=== PATIENT | female | born 1945 | race Caucasian/White ===

== ENCOUNTER 2019-03-02 14:32 | Inpatient (IN) ==
[2019-03-02] MEDS ORDERED: Naloxone 0.4 MG/ML INJ IVP PRN (21:50)
[2019-03-02] MEDS ORDERED: Acetaminophen 325 MG TABLET PO PRN (21:50)
[2019-03-03] MEDS: *HR* HYDROcodone/Acet 5/325 mg TABLET PO PRN ×3 (00:05→19:58)
[2019-03-03 05:18] LABS: Hematocrit 32.5 % (35.3-44.9); Hemoglobin 10.8 g/dL (11.5-15.4); Mean Corpuscular HGB Conc 33.2 g/dL (31.6-35.5); Mean Corpuscular Hemoglobin 28.4 pg (28.0-33.3); Mean Corpuscular Volume 85.5 fL (83.0-100.0); Mean Platelet Volume 10.8 fL (9.4-12.4); Platelet Count 227 K/mcL (140-400); Red Cell Distribution Width 14.6 % (11.5-14.5); White Blood Count 19.5 K/mcL (4.3-11.1)
[2019-03-03 05:35] LABS: Alanine Aminotransferase 39 Units/L (7-52); Albumin 2.3 g/dL (3.5-5.7); Albumin/Globulin Ratio 0.6 (1.1-2.2); Alkaline Phosphatase 107 Units/L (34-104); Aspartate Amino Transferase 37 Units/L (13-39); BUN/Creatinine Ratio 51 (6-26); Bilirubin,Total 0.5 mg/dL (0.3-1.0); Blood Urea Nitrogen 37 mg/dL (8-23); Calcium 8.3 mg/dL (8.6-10.3); Carbon Dioxide 23 mEq/L (23-29); Chloride 104 mEq/L (98-107); Globulin 3.9 g/dL (2.4-3.5); Glucose 175 mg/dL (70-105); Osmolality,Calculated 297 (280-300); Potassium 4.2 mEq/L (3.5-5.1); Sodium 137 mEq/L (136-145); Total Protein 6.2 g/dL (6.4-8.9); eGFR For African Americans > 60 (> 60); eGFR For Non-African Americans > 60 (> 60)
[2019-03-03] MEDS ORDERED: 0.9 % Sodium Chloride 250 ML ONE (05:35)
[2019-03-03] MEDS ORDERED: methylPREDNISolone 125 MG/2 ML VIAL IVP SCH (06:00)
[2019-03-03 06:32] LABS: Lymphocytes # 0.4 K/mcL (0.6-4.6); Monocytes # 1.6 K/mcL (0.0-1.3); Neutrophils # 17.6 K/mcL (1.6-8.9); Platelet Estimate Normal (Normal)
[2019-03-03 09:12] LABS: Estimated Average Glucose 123 mg/dl
[2019-03-03] MEDS ORDERED: Aminoglycoside Consult 1 EACH MC ONE (10:45)
[2019-03-03] MEDS: Torsemide 20 MG TABLET PO SCH (10:53)
[2019-03-03] MEDS: Acetaminophen 325 MG TABLET PO SCH ×2 (10:53→17:31)
[2019-03-03 13:33] LABS: Bilirubin,Urine Negative (Negative); Blood,Urine Small (Negative); Clarity,Urine Clear (Clear); Color,Urine Yellow (Yellow); Glucose,Urine (UA) Normal (Normal); Ketones,Urine Negative (Negative); Leukocyte Esterase,Urine Negative (Negative); Nitrite,Urine Negative (Negative); Protein,Urine Negative (Neg-Trace); Specific Gravity,Urine 1.017 (1.010-1.025); Urobilinogen,Urine Normal (Normal)
[2019-03-03 13:35] LABS: Bacteria,Urine None Seen per hpf (None-Few); Hyaline Casts,Urine Few per lpf (None-Few); RBC,Urine 0-3 per hpf (0-3); Squamous Epithelial Cell,Urine Moderate per lpf (None-Few); WBC,Urine 0-3 per hpf (0-3)
[2019-03-03] MEDS ORDERED: MethylPREDNISolone 40 MG/ML VIAL IVP SCH (16:00)
[2019-03-03] MEDS: ceFAZolin 2,000 MG in 0.9 % Sodium Chloride 100 ML IVPB SCH (17:42)
[2019-03-04] MEDS: ceFAZolin 2,000 MG in 0.9 % Sodium Chloride 100 ML IVPB SCH ×4 (00:14→23:42)
[2019-03-04] MEDS: Acetaminophen 325 MG TABLET PO SCH ×5 (00:15→23:42)
[2019-03-04 02:52] LABS: mecA Methicillin-Resist Gene Not Detected (Not Detect)
[2019-03-04 02:53] LABS: Acinetobacter baumannii by PCR Not Detected (Not Detect); Enterobacteriaceae by PCR Not Detected (Not Detect); Enterococcus by PCR Not Detected (Not Detect); Staphylococcus aureus by PCR DETECTED (Not Detect); Staphylococcus by PCR Not Detected (Not Detect); Streptococcus agalactiae(B)PCR Not Detected (Not Detect); Streptococcus by PCR Not Detected (Not Detect); Streptococcus pneumoniae PCR Not Detected (Not Detect); Streptococcus pyogenes (A) PCR Not Detected (Not Detect)
[2019-03-04 02:54] LABS: Candida albicans by PCR Not Detected (Not Detect); Candida glabrata by PCR Not Detected (Not Detect); Candida krusei by PCR Not Detected (Not Detect); Candida parapsilosis by PCR Not Detected (Not Detect); Candida tropicalis by PCR Not Detected (Not Detect); Enterobacter cloacae Cmplx PCR Not Detected (Not Detect); Escherichia coli by PCR Not Detected (Not Detect); Klebsiella oxytoca by PCR Not Detected (Not Detect); Klebsiella pneumoniae by PCR Not Detected (Not Detect); Proteus by PCR Not Detected (Not Detect); Pseudomonas aeruginosa by PCR Not Detected (Not Detect); Serratia marcescens by PCR Not Detected (Not Detect)
[2019-03-04 06:08] LABS: Hematocrit 32.1 % (35.3-44.9); Hemoglobin 10.6 g/dL (11.5-15.4); Mean Corpuscular Hemoglobin 27.7 pg (28.0-33.3); Mean Corpuscular Volume 83.8 fL (83.0-100.0); Mean Platelet Volume 10.8 fL (9.4-12.4); Platelet Count 238 K/mcL (140-400); Red Blood Count 3.83 M/mcL (3.82-4.97); Red Cell Distribution Width 14.7 % (11.5-14.5); White Blood Count 19.9 K/mcL (4.3-11.1)
[2019-03-04] MEDS: *HR* Enoxaparin 40 MG/0.4 ML SYRINGE SQ SCH (06:16)
[2019-03-04 06:30] LABS: Alanine Aminotransferase 43 Units/L (7-52); Albumin 2.2 g/dL (3.5-5.7); Albumin/Globulin Ratio 0.6 (1.1-2.2); Alkaline Phosphatase 95 Units/L (34-104); Aspartate Amino Transferase 39 Units/L (13-39); BUN/Creatinine Ratio 57 (6-26); Bilirubin,Total 0.5 mg/dL (0.3-1.0); Blood Urea Nitrogen 47 mg/dL (8-23); Calcium 7.9 mg/dL (8.6-10.3); Carbon Dioxide 24 mEq/L (23-29); Chloride 104 mEq/L (98-107); Globulin 3.7 g/dL (2.4-3.5); Glucose 135 mg/dL (70-105); Osmolality,Calculated 300 (280-300); Potassium 3.9 mEq/L (3.5-5.1); Sodium 138 mEq/L (136-145); Total Protein 5.9 g/dL (6.4-8.9); eGFR For African Americans > 60 (> 60); eGFR For Non-African Americans > 60 (> 60)
[2019-03-04 06:31] LABS: Magnesium 2.1 mg/dL (1.6-2.6); Phosphorous 3.5 mg/dL (2.7-4.5)
[2019-03-04] MEDS: Aspirin Enteric Coated 81 MG Tablet PO SCH (08:33)
[2019-03-04] MEDS: predniSONE 10 MG TABLET PO SCH (08:33)
[2019-03-04] MEDS: Loratadine 10 MG TABLET PO SCH (08:33)
[2019-03-04] MEDS: Torsemide 20 MG TABLET PO SCH (08:33)
[2019-03-04] MEDS ORDERED: Potassium Citrate 10 MEQ TABLET.ER PO SCH (09:00)
[2019-03-04] MEDS: *HR* HYDROcodone/Acet 5/325 mg TABLET PO PRN ×2 (10:54→17:41)
[2019-03-04] MEDS ORDERED: Isovue-370 500 ML BOTTLE IVP ONE (10:59)
[2019-03-04 19:27] LABS: Bilirubin,Urine Negative (Negative); Blood,Urine Negative (Negative); Clarity,Urine Clear (Clear); Color,Urine Yellow (Yellow); Glucose,Urine (UA) Normal (Normal); Ketones,Urine Negative (Negative); Leukocyte Esterase,Urine Negative (Negative); Nitrite,Urine Negative (Negative); Protein,Urine Negative (Neg-Trace); Specific Gravity,Urine 1.027 (1.010-1.025); Urobilinogen,Urine Normal (Normal)
[2019-03-04] MEDS: Nystatin POWDER 30 GM BOTTLE TP SCH (22:14)
[2019-03-04] MEDS ORDERED: *HR* OxyCODONE Immed Rel 5 MG TABLET PO ONE (22:51)
[2019-03-05] MEDS: *HR* HYDROcodone/Acet 5/325 mg TABLET PO PRN ×2 (03:37→09:43)
[2019-03-05 04:23] LABS: Hematocrit 32.7 % (35.3-44.9); Hemoglobin 10.9 g/dL (11.5-15.4); Mean Corpuscular HGB Conc 33.3 g/dL (31.6-35.5); Mean Corpuscular Hemoglobin 28.2 pg (28.0-33.3); Mean Corpuscular Volume 84.5 fL (83.0-100.0); Mean Platelet Volume 10.5 fL (9.4-12.4); Platelet Count 251 K/mcL (140-400); Red Blood Count 3.87 M/mcL (3.82-4.97); Red Cell Distribution Width 14.6 % (11.5-14.5); White Blood Count 21.3 K/mcL (4.3-11.1)
[2019-03-05 04:43] LABS: BUN/Creatinine Ratio 48 (6-26); Blood Urea Nitrogen 37 mg/dL (8-23); Calcium 7.7 mg/dL (8.6-10.3); Carbon Dioxide 25 mEq/L (23-29); Chloride 102 mEq/L (98-107); Glucose 129 mg/dL (70-105); Osmolality,Calculated 290 (280-300); Potassium 3.9 mEq/L (3.5-5.1); Sodium 135 mEq/L (136-145); eGFR For African Americans > 60 (> 60); eGFR For Non-African Americans > 60 (> 60)
[2019-03-05 05:41] LABS: Acinetobacter baumannii by PCR Not Detected (Not Detect); Candida albicans by PCR Not Detected (Not Detect); Candida glabrata by PCR Not Detected (Not Detect); Candida krusei by PCR Not Detected (Not Detect); Candida parapsilosis by PCR Not Detected (Not Detect); Candida tropicalis by PCR Not Detected (Not Detect); Enterobacter cloacae Cmplx PCR Not Detected (Not Detect); Enterobacteriaceae by PCR Not Detected (Not Detect); Enterococcus by PCR Not Detected (Not Detect); Escherichia coli by PCR Not Detected (Not Detect); Klebsiella oxytoca by PCR Not Detected (Not Detect); Klebsiella pneumoniae by PCR Not Detected (Not Detect); Proteus by PCR Not Detected (Not Detect); Pseudomonas aeruginosa by PCR Not Detected (Not Detect); Serratia marcescens by PCR Not Detected (Not Detect); Staphylococcus aureus by PCR DETECTED (Not Detect); Staphylococcus by PCR Not Detected (Not Detect); Streptococcus agalactiae(B)PCR Not Detected (Not Detect); Streptococcus by PCR Not Detected (Not Detect); Streptococcus pneumoniae PCR Not Detected (Not Detect); Streptococcus pyogenes (A) PCR Not Detected (Not Detect); mecA Methicillin-Resist Gene Not Detected (Not Detect)
[2019-03-05] MEDS: *HR* Enoxaparin 40 MG/0.4 ML SYRINGE SQ SCH (05:50)
[2019-03-05] MEDS: Acetaminophen 325 MG TABLET PO SCH ×3 (05:50→17:13)
[2019-03-05] MEDS: predniSONE 10 MG TABLET PO SCH (09:46)
[2019-03-05] MEDS: ceFAZolin 2,000 MG in 0.9 % Sodium Chloride 100 ML IVPB SCH ×2 (09:47→17:12)
[2019-03-05] MEDS ORDERED: Lidocaine Viscous Oral Soln 15 ML SOLUTION MM PRN (09:51)
[2019-03-05] MEDS ORDERED: 0.9 % Sodium Chloride 500 ML IVC ONE (09:51)
[2019-03-05] MEDS: *HR* FentaNYL (PF) 100 MCG/2 ML VIAL IVP PRN ×2 (10:30→10:35)
[2019-03-05] MEDS: *HR* Midazolam HCl 5 MG/5 ML VIAL IVP PRN ×2 (10:30→10:35)
[2019-03-05] MEDS ORDERED: *HR* HYDROcodone/Acet 5/325 mg TABLET PO PRN (10:55)
[2019-03-05] MEDS: Torsemide 20 MG TABLET PO SCH (12:47)
[2019-03-05] MEDS: Aspirin Enteric Coated 81 MG Tablet PO SCH (12:47)
[2019-03-05] MEDS: Loratadine 10 MG TABLET PO SCH (12:47)
[2019-03-05] MEDS: Nystatin POWDER 30 GM BOTTLE TP SCH ×2 (12:50→20:37)
[2019-03-05] MEDS: Potassium Chloride Elixir 20 MEQ/15 ML UDC PO SCH (14:39)
[2019-03-05] MEDS: Mag Hydrox/Al Hydrox/Simeth 30 ML UDC PO PRN (19:17)
[2019-03-06] MEDS: ceFAZolin 2,000 MG in 0.9 % Sodium Chloride 100 ML IVPB SCH ×3 (00:39→15:26)
[2019-03-06] MEDS: Acetaminophen 325 MG TABLET PO SCH ×4 (00:40→17:22)
[2019-03-06] MEDS: *HR* OxyCODONE Immed Rel 5 MG TABLET PO PRN ×3 (01:14→21:27)
[2019-03-06] MEDS: Mag Hydrox/Al Hydrox/Simeth 30 ML UDC PO PRN ×3 (01:37→21:26)
[2019-03-06 04:02] LABS: White Blood Count 22.4 K/mcL (4.3-11.1)
[2019-03-06 04:03] LABS: Hematocrit 29.9 % (35.3-44.9); Hemoglobin 9.9 g/dL (11.5-15.4); Mean Corpuscular HGB Conc 33.1 g/dL (31.6-35.5); Mean Corpuscular Hemoglobin 27.8 pg (28.0-33.3); Mean Platelet Volume 10.7 fL (9.4-12.4); Platelet Count 270 K/mcL (140-400); Red Blood Count 3.56 M/mcL (3.82-4.97); Red Cell Distribution Width 14.6 % (11.5-14.5)
[2019-03-06 04:24] LABS: BUN/Creatinine Ratio 39 (6-26); Blood Urea Nitrogen 24 mg/dL (8-23); Calcium 7.6 mg/dL (8.6-10.3); Carbon Dioxide 27 mEq/L (23-29); Chloride 99 mEq/L (98-107); Glucose 149 mg/dL (70-105); Osmolality,Calculated 283 (280-300); Phosphorous 2.6 mg/dL (2.7-4.5); Potassium 3.9 mEq/L (3.5-5.1); Sodium 133 mEq/L (136-145); eGFR For African Americans > 60 (> 60); eGFR For Non-African Americans > 60 (> 60)
[2019-03-06 04:47] LABS: Lymphocytes # 2.2 K/mcL (0.6-4.6); Monocytes # 0.9 K/mcL (0.0-1.3); Neutrophils # 19.3 K/mcL (1.6-8.9)
[2019-03-06 04:51] LABS: Platelet Estimate Normal (Normal)
[2019-03-06] MEDS: *HR* Enoxaparin 40 MG/0.4 ML SYRINGE SQ SCH (06:16)
[2019-03-06] MEDS: Loratadine 10 MG TABLET PO SCH (08:15)
[2019-03-06] MEDS: predniSONE 10 MG TABLET PO SCH (08:15)
[2019-03-06] MEDS: Aspirin Enteric Coated 81 MG Tablet PO SCH (08:15)
[2019-03-06] MEDS: Potassium Chloride Elixir 20 MEQ/15 ML UDC PO SCH (08:15)
[2019-03-06] MEDS: Nystatin POWDER 30 GM BOTTLE TP SCH ×2 (08:20→21:27)
[2019-03-06] MEDS: Torsemide 20 MG TABLET PO SCH (09:59)
[2019-03-06] MEDS: Simethicone 80 MG TAB.CHEW PO PRN (11:04)
[2019-03-06] MEDS ORDERED: *HR* LORazepam 2 MG/ML VIAL IVP PRN (11:22)
[2019-03-06] MEDS ORDERED: Isovue-370 500 ML BOTTLE IVP ONE (16:29)
[2019-03-07] MEDS: ceFAZolin 2,000 MG in 0.9 % Sodium Chloride 100 ML IVPB SCH ×3 (01:02→16:16)
[2019-03-07] MEDS: Acetaminophen 325 MG TABLET PO SCH ×4 (01:02→18:30)
[2019-03-07] MEDS: Simethicone 80 MG TAB.CHEW PO PRN (01:06)
[2019-03-07 04:12] LABS: Hematocrit 30.3 % (35.3-44.9); Hemoglobin 10.1 g/dL (11.5-15.4); Mean Corpuscular HGB Conc 33.3 g/dL (31.6-35.5); Mean Corpuscular Hemoglobin 27.6 pg (28.0-33.3); Mean Corpuscular Volume 82.8 fL (83.0-100.0); Mean Platelet Volume 10.9 fL (9.4-12.4); Platelet Count 331 K/mcL (140-400); Red Blood Count 3.66 M/mcL (3.82-4.97); Red Cell Distribution Width 14.8 % (11.5-14.5); White Blood Count 19.9 K/mcL (4.3-11.1)
[2019-03-07 04:33] LABS: BUN/Creatinine Ratio 36 (6-26); Blood Urea Nitrogen 21 mg/dL (8-23); Calcium 7.9 mg/dL (8.6-10.3); Carbon Dioxide 26 mEq/L (23-29); Chloride 98 mEq/L (98-107); Glucose 129 mg/dL (70-105); Osmolality,Calculated 277 (280-300); Phosphorous 2.7 mg/dL (2.7-4.5); Potassium 4.1 mEq/L (3.5-5.1); Sodium 131 mEq/L (136-145); eGFR For African Americans > 60 (> 60); eGFR For Non-African Americans > 60 (> 60)
[2019-03-07 05:09] LABS: Lymphocytes # 2.8 K/mcL (0.6-4.6); Monocytes # 0.8 K/mcL (0.0-1.3); Neutrophils # 16.3 K/mcL (1.6-8.9)
[2019-03-07 05:10] LABS: Platelet Estimate Normal (Normal); Toxic Granulation Present (Not Present)
[2019-03-07] MEDS: *HR* Enoxaparin 40 MG/0.4 ML SYRINGE SQ SCH (05:57)
[2019-03-07] MEDS: *HR* OxyCODONE Immed Rel 5 MG TABLET PO PRN ×2 (06:52→20:09)
[2019-03-07] MEDS: Potassium Chloride Elixir 20 MEQ/15 ML UDC PO SCH (07:34)
[2019-03-07] MEDS: Loratadine 10 MG TABLET PO SCH (07:34)
[2019-03-07] MEDS: Nystatin POWDER 30 GM BOTTLE TP SCH ×2 (07:35→20:11)
[2019-03-07] MEDS: Torsemide 20 MG TABLET PO SCH (07:35)
[2019-03-07] MEDS: predniSONE 10 MG TABLET PO SCH (07:35)
[2019-03-07] MEDS: Aspirin Enteric Coated 81 MG Tablet PO SCH (07:36)
[2019-03-07] MEDS ORDERED: *HR* LORazepam 2 MG/ML VIAL IVP PRN (13:31)
[2019-03-07] MEDS: Furosemide 20 MG/2 ML VIAL IVP SCH (16:16)
[2019-03-07] MEDS: *HR* LORazepam 0.5 MG TABLET PO PRN (20:09)
[2019-03-07] MEDS ORDERED: Furosemide 20 MG/2 ML VIAL IVP SCH (21:00)
[2019-03-08] MEDS: Acetaminophen 325 MG TABLET PO SCH ×4 (00:03→17:30)
[2019-03-08] MEDS: ceFAZolin 2,000 MG in 0.9 % Sodium Chloride 100 ML IVPB SCH ×3 (00:03→17:30)
[2019-03-08] MEDS: *HR* Enoxaparin 40 MG/0.4 ML SYRINGE SQ SCH (05:59)
[2019-03-08] MEDS: Simethicone 80 MG TAB.CHEW PO PRN ×2 (06:04→21:18)
[2019-03-08 07:04] LABS: Hematocrit 29.9 % (35.3-44.9); Hemoglobin 9.8 g/dL (11.5-15.4); Mean Corpuscular HGB Conc 32.8 g/dL (31.6-35.5); Mean Corpuscular Hemoglobin 27.8 pg (28.0-33.3); Mean Corpuscular Volume 84.7 fL (83.0-100.0); Mean Platelet Volume 10.3 fL (9.4-12.4); Platelet Count 418 K/mcL (140-400); Red Blood Count 3.53 M/mcL (3.82-4.97); White Blood Count 15.3 K/mcL (4.3-11.1)
[2019-03-08 07:22] LABS: BUN/Creatinine Ratio 33 (6-26); Blood Urea Nitrogen 20 mg/dL (8-23); Calcium 8.1 mg/dL (8.6-10.3); Carbon Dioxide 28 mEq/L (23-29); Chloride 95 mEq/L (98-107); Glucose 122 mg/dL (70-105); Osmolality,Calculated 274 (280-300); Phosphorous 3.8 mg/dL (2.7-4.5); Potassium 4.1 mEq/L (3.5-5.1); Sodium 130 mEq/L (136-145); eGFR For African Americans > 60 (> 60); eGFR For Non-African Americans > 60 (> 60)
[2019-03-08 07:27] LABS: Eosinophils # 0.3 K/mcL (0.0-0.6); Lymphocytes # 2.5 K/mcL (0.6-4.6); Monocytes # 1.8 K/mcL (0.0-1.3); Neutrophils # 10.7 K/mcL (1.6-8.9); Platelet Estimate Normal (Normal)
[2019-03-08] MEDS: Aspirin Enteric Coated 81 MG Tablet PO SCH (09:40)
[2019-03-08] MEDS: Potassium Chloride Elixir 20 MEQ/15 ML UDC PO SCH (09:40)
[2019-03-08] MEDS: predniSONE 10 MG TABLET PO SCH (09:41)
[2019-03-08] MEDS: Loratadine 10 MG TABLET PO SCH (09:41)
[2019-03-08] MEDS: Furosemide 20 MG/2 ML VIAL IVP SCH ×2 (09:41→18:07)
[2019-03-08] MEDS: *HR* OxyCODONE Immed Rel 5 MG TABLET PO PRN ×3 (09:41→21:18)
[2019-03-08] MEDS: Nystatin POWDER 30 GM BOTTLE TP SCH ×2 (09:46→21:26)
[2019-03-08] MEDS ORDERED: Furosemide 20 MG/2 ML VIAL IVP ONE (13:11)
[2019-03-08] MEDS ORDERED: Furosemide 40 MG/4 ML VIAL IVP ONE (21:00)
[2019-03-08] MEDS: Carisoprodol 350 MG TABLET PO PRN (21:18)
[2019-03-08] MEDS: *HR* LORazepam 0.5 MG TABLET PO PRN (21:18)
[2019-03-08] MEDS: Mag Hydrox/Al Hydrox/Simeth 30 ML UDC PO PRN (21:19)
[2019-03-09] MEDS: ceFAZolin 2,000 MG in 0.9 % Sodium Chloride 100 ML IVPB SCH ×4 (00:12→23:28)
[2019-03-09] MEDS: Acetaminophen 325 MG TABLET PO SCH ×5 (00:12→23:31)
[2019-03-09] MEDS: Simethicone 80 MG TAB.CHEW PO PRN ×2 (06:25→21:46)
[2019-03-09] MEDS: *HR* OxyCODONE Immed Rel 5 MG TABLET PO PRN ×3 (06:26→21:46)
[2019-03-09] MEDS: Carisoprodol 350 MG TABLET PO PRN ×2 (06:26→21:46)
[2019-03-09] MEDS: *HR* Enoxaparin 40 MG/0.4 ML SYRINGE SQ SCH (06:36)
[2019-03-09 06:51] LABS: Hematocrit 30.5 % (35.3-44.9); Mean Corpuscular HGB Conc 32.8 g/dL (31.6-35.5); Mean Corpuscular Hemoglobin 28.3 pg (28.0-33.3); Mean Corpuscular Volume 86.4 fL (83.0-100.0); Mean Platelet Volume 10.4 fL (9.4-12.4); Platelet Count 458 K/mcL (140-400); Red Blood Count 3.53 M/mcL (3.82-4.97); White Blood Count 11.8 K/mcL (4.3-11.1)
[2019-03-09 07:13] LABS: BUN/Creatinine Ratio 29 (6-26); Blood Urea Nitrogen 19 mg/dL (8-23); Calcium 8.5 mg/dL (8.6-10.3); Carbon Dioxide 30 mEq/L (23-29); Chloride 96 mEq/L (98-107); Glucose 119 mg/dL (70-105); Magnesium 2.1 mg/dL (1.6-2.6); Osmolality,Calculated 271 (280-300); Phosphorous 4.1 mg/dL (2.7-4.5); Potassium 3.7 mEq/L (3.5-5.1); Sodium 129 mEq/L (136-145); eGFR For African Americans > 60 (> 60); eGFR For Non-African Americans > 60 (> 60)
[2019-03-09 07:21] LABS: Eosinophils # 0.7 K/mcL (0.0-0.6); Lymphocytes # 2.6 K/mcL (0.6-4.6); Monocytes # 0.9 K/mcL (0.0-1.3); Neutrophils # 7.6 K/mcL (1.6-8.9)
[2019-03-09 07:23] LABS: Anisocytosis 1+ (Not Present); Smudge Cells Present (Not Present)
[2019-03-09] MEDS: Potassium Chloride Elixir 20 MEQ/15 ML UDC PO SCH (09:26)
[2019-03-09] MEDS: Aspirin Enteric Coated 81 MG Tablet PO SCH (09:26)
[2019-03-09] MEDS: predniSONE 10 MG TABLET PO SCH (09:26)
[2019-03-09] MEDS: Loratadine 10 MG TABLET PO SCH (09:26)
[2019-03-09] MEDS: Furosemide 20 MG/2 ML VIAL IVP SCH ×2 (09:27→16:33)
[2019-03-09] MEDS: Nystatin POWDER 30 GM BOTTLE TP SCH ×2 (09:28→21:45)
[2019-03-09] MEDS: Mag Hydrox/Al Hydrox/Simeth 30 ML UDC PO PRN (21:45)
[2019-03-09] MEDS: *HR* LORazepam 0.5 MG TABLET PO PRN (21:46)
[2019-03-10 05:31] LABS: BUN/Creatinine Ratio 30 (6-26); Blood Urea Nitrogen 20 mg/dL (8-23); Calcium 8.8 mg/dL (8.6-10.3); Carbon Dioxide 32 mEq/L (23-29); Chloride 95 mEq/L (98-107); Glucose 110 mg/dL (70-105); Magnesium 2.2 mg/dL (1.6-2.6); Osmolality,Calculated 277 (280-300); Phosphorous 3.9 mg/dL (2.7-4.5); Potassium 3.6 mEq/L (3.5-5.1); Sodium 132 mEq/L (136-145); eGFR For African Americans > 60 (> 60); eGFR For Non-African Americans > 60 (> 60)
[2019-03-10] MEDS: *HR* Enoxaparin 40 MG/0.4 ML SYRINGE SQ SCH (06:00)
[2019-03-10] MEDS: Acetaminophen 325 MG TABLET PO SCH ×3 (06:01→15:17)
[2019-03-10 06:35] LABS: Hematocrit 30.5 % (35.3-44.9); Hemoglobin 9.7 g/dL (11.5-15.4); Mean Corpuscular HGB Conc 31.8 g/dL (31.6-35.5); Mean Corpuscular Hemoglobin 27.4 pg (28.0-33.3); Mean Corpuscular Volume 86.2 fL (83.0-100.0); Mean Platelet Volume 10.1 fL (9.4-12.4); Platelet Count 504 K/mcL (140-400); Red Blood Count 3.54 M/mcL (3.82-4.97); White Blood Count 11.5 K/mcL (4.3-11.1)
[2019-03-10 08:28] LABS: Lymphocytes # 2.3 K/mcL (0.6-4.6); Monocytes # 1.4 K/mcL (0.0-1.3); Neutrophils # 7.8 K/mcL (1.6-8.9)
[2019-03-10 08:29] LABS: Anisocytosis 1+ (Not Present)
[2019-03-10] MEDS: Furosemide 20 MG/2 ML VIAL IVP SCH ×2 (08:34→15:17)
[2019-03-10] MEDS: ceFAZolin 2,000 MG in 0.9 % Sodium Chloride 100 ML IVPB SCH ×2 (08:34→15:37)
[2019-03-10] MEDS: predniSONE 10 MG TABLET PO SCH (08:35)
[2019-03-10] MEDS: Loratadine 10 MG TABLET PO SCH (08:35)
[2019-03-10] MEDS: Aspirin Enteric Coated 81 MG Tablet PO SCH (08:35)
[2019-03-10] MEDS: Potassium Chloride Elixir 20 MEQ/15 ML UDC PO SCH (08:43)
[2019-03-10] MEDS: *HR* OxyCODONE Immed Rel 5 MG TABLET PO PRN ×5 (08:49→21:27)
[2019-03-10] MEDS: Simethicone 80 MG TAB.CHEW PO PRN ×2 (08:49→21:26)
[2019-03-10] MEDS: Nystatin POWDER 30 GM BOTTLE TP SCH ×2 (08:52→21:27)
[2019-03-10] MEDS ORDERED: Lidocaine -MPF 1% 5 ML AMPUL INFILT ONE (12:23)
[2019-03-10] MEDS: Carisoprodol 350 MG TABLET PO PRN (21:26)
[2019-03-10] MEDS: Mag Hydrox/Al Hydrox/Simeth 30 ML UDC PO PRN (21:27)
[2019-03-10] MEDS: *HR* LORazepam 0.5 MG TABLET PO PRN (21:27)
[2019-03-11] MEDS: ceFAZolin 2,000 MG in 0.9 % Sodium Chloride 100 ML IVPB SCH ×3 (00:38→15:40)
[2019-03-11] MEDS: Acetaminophen 325 MG TABLET PO SCH ×4 (00:43→18:55)
[2019-03-11 05:19] LABS: Basophils % 0.3 %; Eosinophils # 0.1 K/mcL (0.0-0.6); Eosinophils % 0.9 %; Hematocrit 28.5 % (35.3-44.9); Hemoglobin 9.2 g/dL (11.5-15.4); Immature Granulocytes % 2.2 % (0-4); Lymphocytes # 2.4 K/mcL (0.6-4.6); Lymphocytes % 23.9 %; Mean Corpuscular HGB Conc 32.3 g/dL (31.6-35.5); Mean Corpuscular Hemoglobin 28.1 pg (28.0-33.3); Mean Corpuscular Volume 87.2 fL (83.0-100.0); Mean Platelet Volume 9.4 fL (9.4-12.4); Monocytes # 1.1 K/mcL (0.0-1.3); Monocytes % 10.7 %; Neutrophils # 6.2 K/mcL (1.6-8.9); Platelet Count 486 K/mcL (140-400); Red Blood Count 3.27 M/mcL (3.82-4.97); Red Cell Distribution Width 15.3 % (11.5-14.5)
[2019-03-11 05:36] LABS: BUN/Creatinine Ratio 30 (6-26); Blood Urea Nitrogen 19 mg/dL (8-23); Calcium 8.6 mg/dL (8.6-10.3); Carbon Dioxide 31 mEq/L (23-29); Chloride 94 mEq/L (98-107); Glucose 104 mg/dL (70-105); Magnesium 2.2 mg/dL (1.6-2.6); Osmolality,Calculated 279 (280-300); Phosphorous 3.7 mg/dL (2.7-4.5); Potassium 3.7 mEq/L (3.5-5.1); Sodium 133 mEq/L (136-145); eGFR For African Americans > 60 (> 60); eGFR For Non-African Americans > 60 (> 60)
[2019-03-11] MEDS: *HR* Enoxaparin 40 MG/0.4 ML SYRINGE SQ SCH (06:21)
[2019-03-11] MEDS: Potassium Chloride Elixir 20 MEQ/15 ML UDC PO SCH (09:35)
[2019-03-11] MEDS: Aspirin Enteric Coated 81 MG Tablet PO SCH (09:35)
[2019-03-11] MEDS: predniSONE 10 MG TABLET PO SCH (09:35)
[2019-03-11] MEDS: Loratadine 10 MG TABLET PO SCH (09:35)
[2019-03-11] MEDS: Furosemide 20 MG/2 ML VIAL IVP SCH ×2 (09:36→15:41)
[2019-03-11] MEDS: *HR* OxyCODONE Immed Rel 5 MG TABLET PO PRN ×3 (09:41→21:59)
[2019-03-11] MEDS: Nystatin POWDER 30 GM BOTTLE TP SCH ×2 (09:50→21:21)
[2019-03-11] MEDS: Carisoprodol 350 MG TABLET PO PRN ×2 (11:59→21:11)
[2019-03-11] MEDS: Simethicone 80 MG TAB.CHEW PO PRN ×2 (11:59→21:10)
[2019-03-11] MEDS: Mag Hydrox/Al Hydrox/Simeth 30 ML UDC PO PRN ×2 (18:52→21:12)
[2019-03-11] MEDS: *HR* LORazepam 0.5 MG TABLET PO PRN (21:10)
[2019-03-12] MEDS: ceFAZolin 2,000 MG in 0.9 % Sodium Chloride 100 ML IVPB SCH ×2 (00:48→09:52)
[2019-03-12] MEDS: Acetaminophen 325 MG TABLET PO SCH ×2 (00:48→06:10)
[2019-03-12] MEDS: *HR* Enoxaparin 40 MG/0.4 ML SYRINGE SQ SCH (06:10)
[2019-03-12 07:54] VITALS: BP 130/80
[2019-03-12] MEDS: predniSONE 10 MG TABLET PO SCH (09:51)
[2019-03-12] MEDS: Aspirin Enteric Coated 81 MG Tablet PO SCH (09:51)
[2019-03-12] MEDS: Loratadine 10 MG TABLET PO SCH (09:52)
[2019-03-12] MEDS: Furosemide 20 MG/2 ML VIAL IVP SCH (09:52)
[2019-03-12] MEDS: Potassium Chloride Elixir 20 MEQ/15 ML UDC PO SCH (09:53)
[2019-03-12] MEDS: *HR* OxyCODONE Immed Rel 5 MG TABLET PO PRN (10:02)
[2019-03-12] MEDS: Simethicone 80 MG TAB.CHEW PO PRN (10:10)
[2019-03-12] MEDS: Mag Hydrox/Al Hydrox/Simeth 30 ML UDC PO PRN (10:11)
[2019-03-12] MEDS: Nystatin POWDER 30 GM BOTTLE TP SCH (12:11)
== END 2019-03-12 12:54 | disposition home or self-care (01) | DRG 871 ==
LOC: SUATTDRO 18:40 → 2ANU 18:40
PROVIDERS: ADMIT Internal Medicine; ATTEND Internal Medicine

== ENCOUNTER 2019-08-12 21:07 | Observation (INO) ==
[2019-08-12] MEDS ORDERED: Ondansetron 4 MG/2 ML VIAL IVP PRN (22:56)
[2019-08-12] MEDS ORDERED: Naloxone 0.4 MG/ML INJ IVP PRN (22:56)
[2019-08-12] MEDS ORDERED: Vancomycin 0 MG in 0.9 % Sodium Chloride 250 ML IVPB SCH (23:45)
[2019-08-13] MEDS: ceFAZolin 1,000 MG in Water for inj. (sterile) 10 ML IVP SCH ×2 (00:13→08:39)
[2019-08-13] MEDS: *HR* Heparin 5,000 UNIT/ML VIAL SQ SCH ×3 (00:14→16:56)
[2019-08-13] MEDS: 0.9 % Sodium Chloride 1,000 ML IVC SCH ×2 (00:14→20:01)
[2019-08-13 02:02] LABS: Basophils % 0.9 %; Eosinophils # 0.1 K/mcL (0.0-0.6); Eosinophils % 2.9 %; Hematocrit 36.4 % (35.3-44.9); Immature Granulocytes % 0.2 % (0-4); Lymphocytes % 44.6 %; Mean Corpuscular Hemoglobin 29.1 pg (28.0-33.3); Mean Corpuscular Volume 88.1 fL (83.0-100.0); Mean Platelet Volume 11.3 fL (9.4-12.4); Monocytes # 0.5 K/mcL (0.0-1.3); Monocytes % 11.5 %; Neutrophils # 1.8 K/mcL (1.6-8.9); Platelet Count 201 K/mcL (140-400); Red Blood Count 4.13 M/mcL (3.82-4.97); Red Cell Distribution Width 14.2 % (11.5-14.5); Segmented Neutrophils % 39.9 %; White Blood Count 4.5 K/mcL (4.3-11.1)
[2019-08-13 02:21] LABS: BUN/Creatinine Ratio 17 (6-26); Blood Urea Nitrogen 13 mg/dL (8-23); Calcium 8.8 mg/dL (8.6-10.3); Carbon Dioxide 24 mEq/L (23-29); Chloride 106 mEq/L (98-107); Glucose 128 mg/dL (70-105); Osmolality,Calculated 288 (280-300); Phosphorous 3.1 mg/dL (2.7-4.5); Potassium 3.5 mEq/L (3.5-5.1); Sodium 138 mEq/L (136-145); eGFR For African Americans > 60 (> 60); eGFR For Non-African Americans > 60 (> 60)
[2019-08-13] MEDS: *HR* HYDROmorphone (PF) 1 MG/ML SYRINGE IVP PRN ×2 (04:28→08:38)
[2019-08-13] MEDS ORDERED: Acetaminophen IV 1,000 MG/100 ML INFUS..BTL IVPB ONE (09:29)
[2019-08-13] MEDS: predniSONE 5 MG TABLET PO SCH (17:05)
[2019-08-13] MEDS: methocarbamoL 500 MG TABLET PO PRN (20:01)
[2019-08-14] MEDS: *HR* Heparin 5,000 UNIT/ML VIAL SQ SCH ×2 (05:21→17:32)
[2019-08-14] MEDS: Loratadine 10 MG TABLET PO SCH (05:22)
[2019-08-14 05:49] LABS: Eosinophils # 0.1 K/mcL (0.0-0.6); Eosinophils % 2.2 %; Hematocrit 34.2 % (35.3-44.9); Hemoglobin 10.7 g/dL (11.5-15.4); Immature Granulocytes % 0.2 % (0-4); Lymphocytes # 1.5 K/mcL (0.6-4.6); Lymphocytes % 36.4 %; Mean Corpuscular HGB Conc 31.3 g/dL (31.6-35.5); Mean Corpuscular Hemoglobin 27.8 pg (28.0-33.3); Mean Corpuscular Volume 88.8 fL (83.0-100.0); Mean Platelet Volume 11.5 fL (9.4-12.4); Monocytes # 0.4 K/mcL (0.0-1.3); Neutrophils # 2.1 K/mcL (1.6-8.9); Platelet Count 139 K/mcL (140-400); Red Blood Count 3.85 M/mcL (3.82-4.97); Red Cell Distribution Width 14.3 % (11.5-14.5); Segmented Neutrophils % 51.2 %; White Blood Count 4.1 K/mcL (4.3-11.1)
[2019-08-14 06:11] LABS: BUN/Creatinine Ratio 18 (6-26); Blood Urea Nitrogen 11 mg/dL (8-23); Calcium 8.8 mg/dL (8.6-10.3); Carbon Dioxide 24 mEq/L (23-29); Chloride 107 mEq/L (98-107); Glucose 103 mg/dL (70-105); Osmolality,Calculated 284 (280-300); Sodium 137 mEq/L (136-145); eGFR For African Americans > 60 (> 60); eGFR For Non-African Americans > 60 (> 60)
[2019-08-14] MEDS: predniSONE 5 MG TABLET PO SCH (07:21)
[2019-08-14] MEDS: Doxycycline 100 MG in 0.9 % Sodium Chloride Mini Bag 100 ML IVPB SCH (17:32)
[2019-08-14] MEDS: methocarbamoL 500 MG TABLET PO PRN (20:48)
[2019-08-14] MEDS ORDERED: Aminoglycoside Consult 1 EACH MC ONE (21:27)
[2019-08-15] MEDS: *HR* Heparin 5,000 UNIT/ML VIAL SQ SCH (06:04)
[2019-08-15] MEDS: Doxycycline 100 MG in 0.9 % Sodium Chloride Mini Bag 100 ML IVPB SCH (06:05)
[2019-08-15] MEDS: predniSONE 5 MG TABLET PO SCH (07:55)
[2019-08-15] MEDS: Loratadine 10 MG TABLET PO SCH (07:55)
[2019-08-15 08:37] LABS: Eosinophils # 0.2 K/mcL (0.0-0.6); Eosinophils % 4.9 %; Hemoglobin 11.9 g/dL (11.5-15.4); Immature Granulocytes % 0.2 % (0-4); Lymphocytes # 2.4 K/mcL (0.6-4.6); Lymphocytes % 58.4 %; Mean Corpuscular HGB Conc 32.2 g/dL (31.6-35.5); Mean Corpuscular Hemoglobin 28.7 pg (28.0-33.3); Mean Corpuscular Volume 89.4 fL (83.0-100.0); Mean Platelet Volume 11.8 fL (9.4-12.4); Monocytes # 0.4 K/mcL (0.0-1.3); Monocytes % 8.5 %; Neutrophils # 1.1 K/mcL (1.6-8.9); Platelet Count 177 K/mcL (140-400); Red Blood Count 4.14 M/mcL (3.82-4.97); Red Cell Distribution Width 14.2 % (11.5-14.5); White Blood Count 4.1 K/mcL (4.3-11.1)
[2019-08-15 11:01] VITALS: BP 104/63
== END 2019-08-15 15:58 | disposition home or self-care (01) ==
LOC: 3NENU → SUATTDRO 21:26
PROVIDERS: ADMIT Internal Medicine; ATTEND Internal Medicine
PROC: IRFLUID (2019-08-13 12:00)

== ENCOUNTER 2019-11-13 16:54 | Inpatient (IN) ==
[2019-11-13] MEDS ORDERED: Morphine Sulfate 2 MG/ML SYRINGE IVP ONE (19:31)
[2019-11-13] MEDS ORDERED: *HR* HYDROmorphone (PF) 1 MG/ML SYRINGE IVP ONE (22:10)
[2019-11-13] MEDS ORDERED: Ondansetron 4 MG/2 ML VIAL IVP PRN (22:24)
[2019-11-13] MEDS ORDERED: *HR* HYDROcodone/Acet 5/325 mg TABLET PO PRN (22:24)
[2019-11-13] MEDS ORDERED: Acetaminophen 325 MG TABLET PO PRN (22:24)
[2019-11-13] MEDS ORDERED: Naloxone 0.4 MG/ML INJ IVP PRN (22:24)
[2019-11-13] MEDS ORDERED: Dextrose Gel 15 GM/37.5 ML TUBE PO PRN ×2 (22:31)
[2019-11-13] MEDS ORDERED: *HR* Dextrose 50 % in Water (Syg) 50 ML SYRINGE IVP PRN (22:31)
[2019-11-13] MEDS ORDERED: D5% in Water 1,000 ML IVC PRN (22:31)
[2019-11-13 23:21] LABS: INR 1.1; Prothrombin Time 12.6 Seconds (9.4-12.1)
[2019-11-14] MEDS ORDERED: 0.9 % Sodium Chloride 1,000 ML IVC SCH ×2 (00:15→14:23)
[2019-11-14] MEDS: *HR* Heparin 5,000 UNIT/ML VIAL SQ SCH ×2 (00:56→05:12)
[2019-11-14 01:13] LABS: Estimated Average Glucose 111 mg/dl
[2019-11-14 03:01] LABS: Bilirubin,Urine Negative (Negative); Blood,Urine Negative (Negative); Clarity,Urine Clear (Clear); Color,Urine Yellow (Yellow); Glucose,Urine (UA) Normal (Normal); Ketones,Urine Negative (Negative); Leukocyte Esterase,Urine Trace (Negative); Nitrite,Urine Negative (Negative); Protein,Urine Negative (Neg-Trace); Specific Gravity,Urine 1.023 (1.010-1.025); Urobilinogen,Urine Normal (Normal)
[2019-11-14 03:03] LABS: Bacteria,Urine None Seen per hpf (None-Few); Hyaline Casts,Urine None Seen per lpf (None-Few); RBC,Urine 0-3 per hpf (0-3); Squamous Epithelial Cell,Urine Moderate per lpf (None-Few)
[2019-11-14] MEDS: *HR* OxyCODONE Immed Rel 5 MG TABLET PO PRN ×2 (03:19→13:39)
[2019-11-14 04:43] LABS: Basophils # 0.1 K/mcL (0.0-0.2); Basophils % 0.8 %; Eosinophils # 0.1 K/mcL (0.0-0.6); Eosinophils % 2.2 %; Hematocrit 33.9 % (35.3-44.9); Hemoglobin 10.8 g/dL (11.5-15.4); Immature Granulocytes % 0.5 % (0-4); Lymphocytes # 1.6 K/mcL (0.6-4.6); Lymphocytes % 24.9 %; Mean Corpuscular HGB Conc 31.9 g/dL (31.6-35.5); Mean Corpuscular Hemoglobin 28.1 pg (28.0-33.3); Mean Corpuscular Volume 88.1 fL (83.0-100.0); Mean Platelet Volume 10.2 fL (9.4-12.4); Monocytes # 0.8 K/mcL (0.0-1.3); Monocytes % 11.9 %; Neutrophils # 3.8 K/mcL (1.6-8.9); Platelet Count 227 K/mcL (140-400); Red Blood Count 3.85 M/mcL (3.82-4.97); Red Cell Distribution Width 13.8 % (11.5-14.5); Segmented Neutrophils % 59.7 %; White Blood Count 6.3 K/mcL (4.3-11.1)
[2019-11-14 04:57] LABS: INR 1.2; Prothrombin Time 13.6 Seconds (9.4-12.1)
[2019-11-14 05:04] LABS: BUN/Creatinine Ratio 18 (6-26); Blood Urea Nitrogen 14 mg/dL (8-23); Calcium 8.8 mg/dL (8.6-10.3); Carbon Dioxide 24 mEq/L (23-29); Chloride 103 mEq/L (98-107); Glucose 103 mg/dL (70-105); Magnesium 2.2 mg/dL (1.6-2.6); Osmolality,Calculated 287 (280-300); Phosphorous 3.5 mg/dL (2.7-4.5); Potassium 3.4 mEq/L (3.5-5.1); Sodium 138 mEq/L (136-145); eGFR For African Americans > 60 (> 60); eGFR For Non-African Americans > 60 (> 60)
[2019-11-14] MEDS: Insulin LISPRO 300 UNITS/3 ML VIAL SQ SCH ×4 (07:27→22:13)
[2019-11-14] MEDS ORDERED: carvediloL 6.25 MG TABLET PO SCH ×2 (08:00→17:00)
[2019-11-14] MEDS ORDERED: Ethanol\\Acetic Acid\\Na Ace\\Ben 1,000 ML IRRIG.SOLN IR ONE (08:06)
[2019-11-14] MEDS ORDERED: predniSONE 5 MG TABLET PO SCH (09:00)
[2019-11-14] MEDS ORDERED: Ropivacaine/PF 0.5% 30 ML VIAL ONE (09:15)
[2019-11-14] MEDS ORDERED: Total Joint Mixture (50 ml) INTRAART ONE (10:00)
[2019-11-14] MEDS ORDERED: *HR* HYDROmorphone PF 0.5 MG/0.5 ML SYRINGE IVP PRN (11:05)
[2019-11-14] MEDS ORDERED: *HR* OxyCODONE Immed Rel 5 MG TABLET PO PRN (11:05)
[2019-11-14] MEDS ORDERED: Ondansetron 4 MG/2 ML VIAL IVP ONE (11:05)
[2019-11-14] MEDS ORDERED: *HR* Propofol 200 MG/20 ML VIAL IVP ONE (11:10)
[2019-11-14] MEDS ORDERED: *HR* Succinylcholine 200 MG/10 ML VIAL IVP ONE (11:10)
[2019-11-14] MEDS ORDERED: Ondansetron 4 MG/2 ML VIAL ONE (11:10)
[2019-11-14] MEDS ORDERED: Lidocaine -MPF 2% 2 ML VIAL ONE (11:10)
[2019-11-14] MEDS ORDERED: Dexamethasone 4 MG/ML VIAL ONE (11:10)
[2019-11-14] MEDS ORDERED: *HR* FentaNYL (PF) 100 MCG/2 ML VIAL ONE ×2 (11:10→12:00)
[2019-11-14] MEDS ORDERED: Vancomycin 1,000 MG VIAL ONE (12:43)
[2019-11-14] MEDS ORDERED: MOM Conc 10 ML UD.LIQ PO PRN (14:23)
[2019-11-14] MEDS ORDERED: Ondansetron 4 MG/2 ML VIAL IVP PRN (14:23)
[2019-11-14] MEDS ORDERED: *HR* Promethazine 25 MG/ML VIAL IVP PRN (14:23)
[2019-11-14] MEDS ORDERED: Dextrose Gel 15 GM/37.5 ML TUBE PO PRN ×2 (14:23)
[2019-11-14] MEDS ORDERED: Acetaminophen 325 MG TABLET PO PRN (14:23)
[2019-11-14] MEDS ORDERED: Naloxone 0.4 MG/ML INJ IVP PRN (14:23)
[2019-11-14] MEDS ORDERED: Ringers Solution, Lactated 1,000 ML IVC SCH (14:23)
[2019-11-14] MEDS ORDERED: D5% in Water 1,000 ML IVC PRN (14:23)
[2019-11-14] MEDS ORDERED: *HR* Dextrose 50 % in Water (Syg) 50 ML SYRINGE IVP PRN (14:23)
[2019-11-14] MEDS ORDERED: *HR* HYDROcodone/Acet 5/325 mg TABLET PO PRN (14:23)
[2019-11-14] MEDS: methocarbamoL 500 MG TABLET PO SCH ×2 (15:51→22:02)
[2019-11-14] MEDS: Ascorbic Acid 500 MG TABLET PO SCH (16:33)
[2019-11-14] MEDS ORDERED: Sennosides 8.6 MG TABLET PO PRN (21:00)
[2019-11-14] MEDS ORDERED: Insulin LISPRO 300 UNITS/3 ML VIAL SQ SCH (21:00)
[2019-11-15] MEDS: methocarbamoL 500 MG TABLET PO SCH ×4 (04:49→21:46)
[2019-11-15 05:34] LABS: Basophils % 0.3 %; Immature Granulocytes % 0.4 % (0-4); Lymphocytes # 1.3 K/mcL (0.6-4.6); Lymphocytes % 17.3 %; Mean Corpuscular HGB Conc 31.5 g/dL (31.6-35.5); Mean Corpuscular Hemoglobin 28.2 pg (28.0-33.3); Mean Corpuscular Volume 89.3 fL (83.0-100.0); Mean Platelet Volume 10.8 fL (9.4-12.4); Monocytes # 0.7 K/mcL (0.0-1.3); Monocytes % 9.3 %; Neutrophils # 5.5 K/mcL (1.6-8.9); Platelet Count 243 K/mcL (140-400); Red Blood Count 2.91 M/mcL (3.82-4.97); Red Cell Distribution Width 13.7 % (11.5-14.5); Segmented Neutrophils % 72.7 %; White Blood Count 7.5 K/mcL (4.3-11.1)
[2019-11-15 05:39] LABS: Hemoglobin 8.2 g/dL (11.5-15.4)
[2019-11-15 06:01] LABS: BUN/Creatinine Ratio 25 (6-26); Blood Urea Nitrogen 23 mg/dL (8-23); Calcium 8.1 mg/dL (8.6-10.3); Carbon Dioxide 24 mEq/L (23-29); Chloride 108 mEq/L (98-107); Glucose 149 mg/dL (70-105); Osmolality,Calculated 294 (280-300); Potassium 4.4 mEq/L (3.5-5.1); Sodium 139 mEq/L (136-145); eGFR For African Americans > 60 (> 60); eGFR For Non-African Americans 60 (> 60)
[2019-11-15] MEDS: *HR* OxyCODONE Immed Rel 5 MG TABLET PO PRN ×2 (07:26→16:04)
[2019-11-15] MEDS: Multivit/Ca/Min/Fe/FA 1 TAB TABLET PO SCH (09:43)
[2019-11-15] MEDS: predniSONE 5 MG TABLET PO SCH (09:43)
[2019-11-15] MEDS: Furosemide 40 MG TABLET PO SCH (09:44)
[2019-11-15] MEDS: Ascorbic Acid 500 MG TABLET PO SCH ×2 (09:44→15:52)
[2019-11-15] MEDS: Insulin LISPRO 300 UNITS/3 ML VIAL SQ SCH ×4 (09:47→21:47)
[2019-11-15] MEDS ORDERED: *HR* HYDROcodone/Acet 5/325 mg TABLET PO PRN (12:26)
[2019-11-15] MEDS: Aspirin Enteric Coated 81 MG Tablet PO SCH (12:59)
[2019-11-15] MEDS: *HR* HYDROcodone/Acet 5/325 mg TABLET PO PRN ×2 (13:05→19:51)
[2019-11-16] MEDS: *HR* OxyCODONE Immed Rel 5 MG TABLET PO PRN ×4 (01:38→22:54)
[2019-11-16 04:01] LABS: Basophils % 0.5 %; Eosinophils # 0.1 K/mcL (0.0-0.6); Eosinophils % 1.6 %; Hematocrit 25.2 % (35.3-44.9); Immature Granulocytes % 0.6 % (0-4); Lymphocytes # 2.1 K/mcL (0.6-4.6); Lymphocytes % 33.9 %; Mean Corpuscular HGB Conc 31.7 g/dL (31.6-35.5); Mean Corpuscular Hemoglobin 28.6 pg (28.0-33.3); Mean Platelet Volume 10.3 fL (9.4-12.4); Monocytes # 0.7 K/mcL (0.0-1.3); Monocytes % 10.8 %; Neutrophils # 3.3 K/mcL (1.6-8.9); Platelet Count 232 K/mcL (140-400); Red Cell Distribution Width 13.7 % (11.5-14.5); Segmented Neutrophils % 52.6 %; White Blood Count 6.2 K/mcL (4.3-11.1)
[2019-11-16] MEDS: methocarbamoL 500 MG TABLET PO SCH ×4 (05:51→22:52)
[2019-11-16] MEDS: *HR* HYDROcodone/Acet 5/325 mg TABLET PO PRN (05:53)
[2019-11-16] MEDS: Multivit/Ca/Min/Fe/FA 1 TAB TABLET PO SCH (08:24)
[2019-11-16] MEDS: Aspirin Enteric Coated 81 MG Tablet PO SCH (08:24)
[2019-11-16] MEDS: Ascorbic Acid 500 MG TABLET PO SCH ×2 (08:24→16:36)
[2019-11-16] MEDS: Furosemide 40 MG TABLET PO SCH (08:25)
[2019-11-16] MEDS: predniSONE 5 MG TABLET PO SCH (08:25)
[2019-11-16] MEDS: Insulin LISPRO 300 UNITS/3 ML VIAL SQ SCH ×4 (08:29→23:24)
[2019-11-16] MEDS ORDERED: Aminoglycoside Consult 1 EACH MC ONE (08:58)
[2019-11-17 04:00] LABS: Basophils % 0.5 %; Eosinophils # 0.2 K/mcL (0.0-0.6); Eosinophils % 3.5 %; Hematocrit 26.1 % (35.3-44.9); Hemoglobin 8.3 g/dL (11.5-15.4); Immature Granulocytes % 0.5 % (0-4); Lymphocytes # 2.5 K/mcL (0.6-4.6); Lymphocytes % 39.5 %; Mean Corpuscular HGB Conc 31.8 g/dL (31.6-35.5); Mean Corpuscular Hemoglobin 28.4 pg (28.0-33.3); Mean Corpuscular Volume 89.4 fL (83.0-100.0); Mean Platelet Volume 10.4 fL (9.4-12.4); Monocytes # 0.8 K/mcL (0.0-1.3); Monocytes % 12.4 %; Neutrophils # 2.7 K/mcL (1.6-8.9); Platelet Count 237 K/mcL (140-400); Red Blood Count 2.92 M/mcL (3.82-4.97); Red Cell Distribution Width 13.9 % (11.5-14.5); Segmented Neutrophils % 43.6 %; White Blood Count 6.2 K/mcL (4.3-11.1)
[2019-11-17 04:25] LABS: BUN/Creatinine Ratio 17 (6-26); Blood Urea Nitrogen 13 mg/dL (8-23); Calcium 8.2 mg/dL (8.6-10.3); Carbon Dioxide 27 mEq/L (23-29); Chloride 104 mEq/L (98-107); Glucose 102 mg/dL (70-105); Osmolality,Calculated 286 (280-300); Potassium 3.7 mEq/L (3.5-5.1); Sodium 138 mEq/L (136-145); eGFR For African Americans > 60 (> 60); eGFR For Non-African Americans > 60 (> 60)
[2019-11-17] MEDS: methocarbamoL 500 MG TABLET PO SCH ×3 (06:11→17:25)
[2019-11-17] MEDS: Insulin LISPRO 300 UNITS/3 ML VIAL SQ SCH ×4 (07:48→20:44)
[2019-11-17] MEDS: predniSONE 5 MG TABLET PO SCH (09:39)
[2019-11-17] MEDS: Furosemide 40 MG TABLET PO SCH (09:39)
[2019-11-17] MEDS: Multivit/Ca/Min/Fe/FA 1 TAB TABLET PO SCH (09:40)
[2019-11-17] MEDS: Ascorbic Acid 500 MG TABLET PO SCH ×2 (09:40→17:25)
[2019-11-17] MEDS: Aspirin Enteric Coated 81 MG Tablet PO SCH (09:40)
[2019-11-17] MEDS: *HR* OxyCODONE Immed Rel 5 MG TABLET PO PRN (09:47)
[2019-11-17] MEDS ORDERED: Lidocaine -MPF 1% 5 ML AMPUL INFILT ONE (11:17)
[2019-11-17] MEDS ORDERED: *HR* LORazepam 0.5 MG TABLET PO ONE (11:56)
[2019-11-17] MEDS: CeFAZolin 2 GM/120 ML BAG IVPB SCH (17:24)
[2019-11-17] MEDS: *HR* HYDROcodone/Acet 5/325 mg TABLET PO PRN (20:54)
[2019-11-18] MEDS: CeFAZolin 2 GM/120 ML BAG IVPB SCH ×2 (00:02→08:40)
[2019-11-18] MEDS: methocarbamoL 500 MG TABLET PO SCH ×3 (00:02→11:34)
[2019-11-18] MEDS: *HR* OxyCODONE Immed Rel 5 MG TABLET PO PRN ×2 (00:22→08:43)
[2019-11-18 04:53] LABS: Basophils % 0.6 %; Eosinophils # 0.2 K/mcL (0.0-0.6); Eosinophils % 4.4 %; Hematocrit 23.3 % (35.3-44.9); Hemoglobin 7.4 g/dL (11.5-15.4); Immature Granulocytes % 0.8 % (0-4); Lymphocytes # 2.2 K/mcL (0.6-4.6); Lymphocytes % 42.9 %; Mean Corpuscular HGB Conc 31.8 g/dL (31.6-35.5); Mean Corpuscular Hemoglobin 28.5 pg (28.0-33.3); Mean Corpuscular Volume 89.6 fL (83.0-100.0); Mean Platelet Volume 9.9 fL (9.4-12.4); Monocytes # 0.5 K/mcL (0.0-1.3); Monocytes % 10.5 %; Neutrophils # 2.1 K/mcL (1.6-8.9); Platelet Count 238 K/mcL (140-400); Red Cell Distribution Width 13.9 % (11.5-14.5); Segmented Neutrophils % 40.8 %
[2019-11-18 05:10] LABS: BUN/Creatinine Ratio 16 (6-26); Blood Urea Nitrogen 11 mg/dL (8-23); Calcium 8.3 mg/dL (8.6-10.3); Carbon Dioxide 29 mEq/L (23-29); Chloride 106 mEq/L (98-107); Glucose 105 mg/dL (70-105); Osmolality,Calculated 286 (280-300); Potassium 3.5 mEq/L (3.5-5.1); Sodium 138 mEq/L (136-145); eGFR For African Americans > 60 (> 60); eGFR For Non-African Americans > 60 (> 60)
[2019-11-18] MEDS: Insulin LISPRO 300 UNITS/3 ML VIAL SQ SCH (08:03)
[2019-11-18] MEDS: Furosemide 40 MG TABLET PO SCH (08:42)
[2019-11-18] MEDS: Aspirin Enteric Coated 81 MG Tablet PO SCH (08:42)
[2019-11-18] MEDS: predniSONE 5 MG TABLET PO SCH (08:43)
[2019-11-18] MEDS: Ascorbic Acid 500 MG TABLET PO SCH (08:43)
[2019-11-18] MEDS: Multivit/Ca/Min/Fe/FA 1 TAB TABLET PO SCH (09:56)
[2019-11-18 19:29] VITALS: BP 127/77
== END 2019-11-18 13:40 | disposition home health service (06) | DRG 464 ==
LOC: 3NENU → SUATTDRO 20:22
PROVIDERS: ADMIT Student in an Organized Health Care Education/Training Program; ATTEND Family Medicine